=== PATIENT | female | born 1995 | race Caucasian/White ===

== ENCOUNTER 2017-03-18 12:58 | Inpatient (IN) | payer OTHER ==
[2017-03-18 18:54] VITALS: BMI 32.1
--- NOTE | 2017-03-18 21:05 | HP ---
CIWA Score - CIWA Score Nausea/Vomitin-Mild Nausea/No Vomiting Muscle Tremors: 4-Moderate,w/Arms Extend Anxiety: 4-Mod. Anxious/Guarded Agitation: 4-Moderately Restless Paroxysmal Sweats: 1-Minimal Palms Moist Orientation: 0-Oriented Tacttile Disturbances: 0-None Auditory Disturbances: 0-None Visual Disturbances: 0-None Headache: 0-None Present CIWA-Ar Total Score: 14 Admission ROS S - HPI Chief Complaint: withdrawal sx Allergies/Adverse Reactions: Allergies Allergy/AdvReac Type Severity Reaction Status Date / Time No Known Drug Allergies Allergy Unknown Verified 01/31/15 13:44 almonds, cashew, pistachio Allergy Difficulty Uncoded 01/31/15 13:44 Breathing History of Present Illness: 21 years old female with long history of xanax nicotine dependence has asthma and depression is admitted to detox on methadone 160 mg Exam Limitations: No Limitations - Ebola screening Have you traveled outside of the country in the last 21 days: No Have you had contact with anyone from an Ebola affected area: No Have you been sick,other than usual withdrawal symptoms: No Do you have a fever: No - Review of Systems Constitutional: Chills, Changes in sleep, Weight Stable EENT: reports: No Symptoms Reported Respiratory: reports: No Symptoms reported Cardiac: reports: No Symptoms Reported GI: reports: Nausea, Poor Fluid Intake, Abdominal cramping : reports: No Symptoms Reported Musculoskeletal: reports: No Symptoms Reported Integumentary: reports: No Symptoms Reported Neuro: reports: Seizure (last episode age 15), Tremors Endocrine: reports: No Symptoms Reported Hematology: reports: No Symptoms Reported Psychiatric: reports: Judgement Intact, Orientated x3, Depressed Other Systems: Reviewed and Negative Patient History - Patient Medical History Hx Anemia: No Hx Asthma: Yes (Pt is on MDI) Hx Chronic Obstructive Pulmonary Disease (COPD): No Hx Cancer: No Hx Cardiac Disorders: No Hx Congestive Heart Failure: No Hx Hypertension: No Hx Hypercholesterolemia: No Hx Pacemaker: No HX Cerebrovascular Accident: No Hx Seizures: Yes (first episode age 15 last episode "I have see my notebood") Hx Dementia: No Hx Diabetes: No Hx Gastrointestinal Disorders: No Hx Liver Disease: No Hx Genitourinary Disorders: No Hx Sexually Transmitted Disorders: No Hx Renal Disease (ESRD): No Hx Thyroid Disease: No Hx Human Immunodeficiency Virus (HIV): No (NEGATIVE HX ) Hx Hepatitis C: No Hx Depression: Yes Hx Suicide Attempt: No Hx Bipolar Disorder: No Hx Schizophrenia: No - Patient Surgical History Past Surgical History: Yes Hx Neurologic Surgery: No Hx Cataract Extraction: No Hx Cardiac Surgery: No Hx Lung Surgery: No Hx Breast Surgery: No Hx Breast Biopsy: No Hx Abdominal Surgery: No Hx Appendectomy: No Hx Cholecystectomy: No Hx Genitourinary Surgery: No Hx Section: No Hx Orthopedic Surgery: No Hx Hysterectomy: No Other Surgical History: s/p tonsillectomy at age of 6 years Anesthesia Reaction: No - PPD History Previous Implant?: Yes Documented Results: Negative w/o proof Implanted On Prior R Admission?: Yes Date: 08/03/14 Results: 0 MM PPD to be Administered?: Yes - Reproductive History Patient is a Female of Child Bearing Age (11 -55 yrs old): Yes Last Menstrual Period: 02/23/17 Patient : No - Smoking Cessation Smoking history: Current every day smoker Have you smoked in the past 12 months: Yes Aproximately how many cigarettes per day: 10 Cigars Per Day: 0 Hx Chewing Tobacco Use: No Initiated information on smoking cessation: Yes 'Breaking Loose' booklet given: 03/18/17 - Substance & Tx. History Hx Alcohol Use: No Hx Substance Use: Yes Substance Use Type: Cocaine, Marijuana, Tranquilizers Hx Substance Use Treatment: Yes - Substances Abused Alprazolam (Xanax) Route: Oral Frequency: Daily Amount used: 6mg Age of first use: 17 Date of Last Use: 03/18/17 Crack Route: Smoking Frequency: Daily Amount used: $20 Age of first use: 12 Date of Last Use: 03/15/17 Marijuana/Hashish Route: Smoking Frequency: Daily Amount used: $10 Age of first use: 12 Date of Last Use: 03/16/17 Family Disease History - Family Disease History Family Disease History: Heart Disease: Mother, Other: Father (alcohol and xanax no contact) Admission Physical Exam BHS - Vital Signs Vital Signs: Vital Signs - 24 hr 03/18/17 18:52 Temperature 98.7 F Pulse Rate 60 Respiratory 18 Rate Blood Pressure 131/72 - Physical General Appearance: Yes: Appropriately Dressed, Mild Distress, Tremorous, Irritable, Sweating, Anxious HEENTM: Yes: Hearing grossly Normal, Normal ENT Inspection, Normocephalic, Normal Voice Respiratory: Yes: Chest Non-Tender, Lungs Clear, Normal Breath Sounds, No Respiratory Distress, No Accessory Muscle Use Neck: Yes: Supple, Trachea in good position Breast: Yes: Breasts Symetrical Cardiology: Yes: Regular Rhythm, Regular Rate, S1, S2 Abdominal: Yes: Non Tender, Soft Genitourinary: Yes: Within Normal Limits Back: Yes: Normal Inspection Musculoskeletal: Yes: full range of Motion, Gait Steady Extremities: Yes: Normal Range of Motion, Non-Tender, Tremors Neurological: Yes: Alert, Motor Strength 5/5, Normal Response, Depressed Affect Integumentary: Yes: Warm, Track [place] (old - year) Lymphatic: Yes: Within Normal Limits - Diagnostic (1) Asthma Current Visit: Yes Status: Chronic (2) Nicotine dependence Current Visit: Yes Status: Acute Qualifiers: Nicotine product type: cigarettes Substance use status: in withdrawal Qualified Code(s): F17.213 - Nicotine dependence, cigarettes, with withdrawal (3) Sedative, hypnotic or anxiolytic dependence, uncomplicated Current Visit: Yes Status: Acute (4) Depression (emotion) Current Visit: Yes Status: Suspected Qualifiers: Depression Type: dysthymia Qualified Code(s): F34.1 - Dysthymic disorder (5) Methadone maintenance therapy patient Current Visit: Yes Status: Chronic Comment: 160 mg verificaiton pending Cleared for Admission [facility] - Detox or Rehab [facility] Level of Care: Medically Managed Detox Regimen/Protocol: Valium [facility] Breath Alcohol Content Breath Alcohol Content: 0 Urine Pregancy Test - Result Urine Test Results: Negative- NO Line Present Urine Drug Screen - Results Urine Drug Screen Results: THC-Marijuana, PHILIP-Cocaine, BZO-Benzodiazepines, MTD- Methadone, TCA-Tricyclic Antidepress
[2017-03-18] MEDS ORDERED: MAGNESIUM HYDROX 2400MG/30ML ORAL SUSPENSION 30 ML CUP PO PRN (21:11)
[2017-03-18] MEDS ORDERED: P-EPHED 60MG/TRIPROLIDI 2.5MG TABLET PO PRN (21:11)
[2017-03-18] MEDS ORDERED: MAGNESIUM CITRATE 300 ML BOTTLE PO PRN (21:11)
[2017-03-18] MEDS ORDERED: MENTHOL/PHENOL 1 EACH UD MM PRN (21:11)
[2017-03-18] MEDS ORDERED: MAG HYDROX/AL HYDROX/SIMETH 30 ML UNIT-DOSE CUP PO PRN (21:11)
[2017-03-18] MEDS ORDERED: NICOTINE POLACRILEX 2 MG GUM BC PRN (21:11)
[2017-03-18] MEDS ORDERED: diazePAM 5 MG TABLET PO ONE (21:11)
[2017-03-18] MEDS ORDERED: LOPERAMIDE HCL 2 MG CAPSULE PO PRN (21:11)
[2017-03-18] MEDS ORDERED: IBUPROFEN 400 MG TABLET (FP) PO PRN (21:11)
[2017-03-18] MEDS ORDERED: guaiFENesin/D-METHORPHAN HB 10 ML UNIT-DOSE CUPS PO PRN (21:11)
[2017-03-18] MEDS ORDERED: ALBUTEROL SO4 2.5/IPRATROPIUM 0.5 INH SOL 3 ML VIAL.NEB. NEB PRN (21:13)
[2017-03-18] MEDS: THIAMINE HCL 100 MG TABLET (FP) PO SCH (21:44)
[2017-03-18] MEDS: diazePAM 5 MG TABLET PO SCH (21:46)
[2017-03-18] MEDS: diphenhydrAMINE HCL 50 MG CAPSULE PO PRN (22:24)
[2017-03-19] MEDS: diazePAM 5 MG TABLET PO SCH ×3 (05:45→22:45)
[2017-03-19] MEDS: diazePAM 5 MG TABLET PO PRN ×3 (07:51→17:30)
--- NOTE | 2017-03-19 08:34 | CONSULT ---
[facility] Psychiatric Consult - Data Date of interview: 03/19/17 Admission source: [facility] Identifying data: This is 21 years old female obese with no psychiatric hospitalization history intoxicated with: Cocaine, Xanax and Opioids dependence history, Nicotine , Cannabis Substance Abuse History: - Smoking Cessation. Smoking history: Current every day smoker. Have you smoked in the past 12 months: Yes. Aproximately how many cigarettes per day: 10. Cigars Per Day: 0. Hx Chewing Tobacco Use: No. Initiated information on smoking cessation: Yes. 'Breaking Loose' booklet given : 03/18/17. - Substance & Tx. History. Hx Alcohol Use: No. Hx Substance Use: Yes. Substance Use Type: Cocaine, Marijuana, Tranquilizers. Hx Substance Use Treatment: Yes. - Substances Abused. Alprazolam (Xanax). Route: Oral. Frequency: Daily. Amount used: 6mg. Age of first use: 17. Date of Last Use: 03/18/17. Crack. Route: Smoking. Frequency: Daily. Amount used: $20. Age of first use: 12. Date of Last Use: 03/15/17. Marijuana/Hashish. Route : Smoking. Frequency: Daily. Amount used: $10. Age of first use: 12. Date of Last Use: 03/16/17 Medical History: Asthma, Seizure history, MMTP history Psychiatric History: Patient reports history of depression and insomnia, reprots takig prior to admission: Gabapentin 100mg po tid Physical/Sexual Abuse/Trauma History: Denies Additional Comment: Gbapentin 100mg po tid Mental Status Exam - Mental Status Exam Alert and Oriented to: Person Cognitive Function: Fair Patient Appearance: Unkempt Mood: Sad Affect: Mood Congruent Patient Behavior: Cooperative Speech Pattern: Appropriate Voice Loudness: Mildly Soft/Quiet Thought Process: Goal Oriented Thought Disorder: Being Controlled Hallucinations: Denies Suicidal Ideation: Denies Homicidal Ideation: Denies Insight/Judgement: Fair Sleep: Difficulty falling asleep Appetite: Weight loss Muscle strength/Tone: Mild Hypotonicity Gait/Station: Shuffling Additional Comments: Gbapentin 100mg po tid Psychiatric Findings - Problem List ([place] 1, 2,3) (1) Nicotine dependence Current Visit: Yes Status: Acute Qualifiers: Nicotine product type: cigarettes Substance use status: in withdrawal Qualified Code(s): F17.213 - Nicotine dependence, cigarettes, with withdrawal (2) Sedative, hypnotic or anxiolytic dependence, uncomplicated Current Visit: Yes Status: Acute (3) Methadone maintenance therapy patient Current Visit: Yes Status: Chronic Comment: 160 mg verificaiton pending (4) Drug induced sleep disorder Current Visit: No Status: Acute (5) Drug-induced mood disorder Current Visit: No Status: Acute (6) Anxiety disorder Current Visit: No Status: Chronic (7) Cannabis dependence Current Visit: No Status: Chronic (8) Cocaine dependence Current Visit: No Status: Chronic (9) Opioid dependence Current Visit: No Status: Chronic (10) Sedative dependence Current Visit: No Status: Chronic - Initial Treatment Plan Initial Treatment Plan: Gbapentin 100mg po tid
[2017-03-19] MEDS ORDERED: METHADONE HCL 40 MG DISPERSABLE TABLET PO ONE (08:56)
[2017-03-19 09:51] LABS: MCH 29.7 pg (25.7-33.7); MCHC 34.5 g/dl (32.0-36.0); MEAN CELL VOLUME 86.1 fl (80-96); MEAN PLT VOLUME 7.6 fl (7.5-11.1); PLATELET COUNT 186 K/MM3 (134-434); RDW 13.3 % (11.6-15.6); WHITE BLOOD COUNT 6.8 K/mm3 (4.0-10.0)
[2017-03-19 10:42] LABS: ALBUMIN 3.9 g/dl (3.4-5.0); ALK PHOS 59 U/L (45-117); ANION GAP 11 (8-16); BILIRUBIN,TOTAL 0.5 mg/dL (0.2-1.0); CALCIUM 8.9 mg/dL (8.5-10.1); CO2 24 mmol/L (21-32); CREATININE 0.8 mg/dL (0.55-1.02); GLUCOSE,RANDOM 82 mg/dL (74-106); SGOT/AST 15 U/L (15-37); SGPT/ALT 22 U/L (12-78); TOT PROT 6.5 g/dl (6.4-8.2)
[2017-03-19] MEDS: NICOTINE 14 MG/24 HOURS TOPICAL PATCH TD SCH (10:42)
[2017-03-19] MEDS: PRENATAL VITAMINS W/ FOLIC ACID TABLET (FP) PO SCH (10:42)
--- NOTE | 2017-03-19 11:36 | PN ---
S CIWA - CIWA Score Nausea/Vomitin Muscle Tremors: 2 Anxiety: 3 Agitation: 2 Paroxysmal Sweats: 3 Orientation: 0-Oriented Tacttile Disturbances: 1-Very Mild Itch/Numbness Auditory Disturbances: 1-Very Mild Visual Disturbances: 0-None Headache: 0-None Present CIWA-Ar Total Score: 14 BHS Progress Note (SOAP) Subjective: interrupted sleep, sweats, decreased appetite Objective: 03/19/17 11:34 Vital Signs Temperature 98.4 F 03/19/17 09:54 Pulse Rate 63 03/19/17 09:54 Respiratory Rate 18 03/19/17 09:54 Blood Pressure 108/67 03/19/17 09:54 O2 Sat by Pulse Oximetry (%) Laboratory Tests 03/19/17 03/19/17 07:00 07:00 WBC 6.8 RBC 4.55 Hgb 13.5 D Hct 39.2 MCV 86.1 MCHC 34.5 RDW 13.3 Plt Count 186 MPV 7.6 Sodium 142 Potassium 3.6 Chloride 107 Carbon Dioxide 24 Anion Gap 11 BUN 16 Creatinine 0.8 Creat Clearance w eGFR > 60 Random Glucose 82 Calcium 8.9 Total Bilirubin 0.5 D AST 15 D ALT 22 D Alkaline Phosphatase 59 Total Protein 6.5 Albumin 3.9 D pt aox3 in nad ambulating Assessment: 03/19/17 11:35 withdrawal sx;s Plan: cont. detox increase fluids ensure bid
[2017-03-19] MEDS ORDERED: PNEUMOCOCCAL 23 VACCINE 0.5 ML VIAL IM ONE (12:00)
[2017-03-19] MEDS ORDERED: PNEUMOC 13-VAL CONJ-DIP CRM/PF 0.5 ML DISP.SYRIN IM ONE (12:00)
--- NOTE | 2017-03-19 13:12 | EKG ---
Test Reason : Blood Pressure : / mmHG Vent. Rate : 048 BPM Atrial Rate : 048 BPM P-R Int : 130 ms QRS Dur : 078 ms QT Int : 452 ms P-R-T Axes : 052 033 049 degrees QTc Int : 403 ms SINUS BRADYCARDIA OTHERWISE NORMAL ECG NO PREVIOUS ECGS AVAILABLE Confirmed by ULI JEROME MD ([id number]) on 03/19/2017 1:12:34 PM Referred By: Confirmed By:ULI JEROME MD
[2017-03-19 14:06] LABS: HIV 1 & 2 AB NEGATIVE; HIV 1 AGp24 NEGATIVE
[2017-03-19] MEDS: GABAPENTIN 100 MG CAPSULE (FP) PO SCH ×2 (14:17→22:45)
[2017-03-19] MEDS: ALBUTEROL SO4 6.7 GM HFA INHALER IH PRN ×2 (15:40→22:46)
[2017-03-19] MEDS: diphenhydrAMINE HCL 50 MG CAPSULE PO PRN (22:45)
[2017-03-19] MEDS: THIAMINE HCL 100 MG TABLET (FP) PO SCH (22:46)
[2017-03-20] MEDS: GABAPENTIN 100 MG CAPSULE (FP) PO SCH ×3 (05:54→22:45)
[2017-03-20] MEDS ORDERED: METHADONE HCL 40 MG DISPERSABLE TABLET PO SCH (06:00)
[2017-03-20] MEDS: PRENATAL VITAMINS W/ FOLIC ACID TABLET (FP) PO SCH (10:50)
[2017-03-20] MEDS: NICOTINE 14 MG/24 HOURS TOPICAL PATCH TD SCH (10:50)
[2017-03-20] MEDS: diazePAM 5 MG TABLET PO SCH ×2 (10:50→22:44)
[2017-03-20] MEDS: CYCLOBENZAPRINE HCL 10 MG TABLET (FP) PO PRN ×2 (10:52→22:45)
--- NOTE | 2017-03-20 11:47 | PN ---
S CIWA - CIWA Score Nausea/Vomitin-No Nausea/No Vomiting Muscle Tremors: 4-Moderate,w/Arms Extend Anxiety: 3 Agitation: 3 Paroxysmal Sweats: 3 Orientation: 0-Oriented Tacttile Disturbances: 0-None Auditory Disturbances: 0-None Visual Disturbances: 0-None Headache: 0-None Present CIWA-Ar Total Score: 13 BHS Progress Note (SOAP) Subjective: muscle aches sweats interrupted sleep agitation Objective: 03/20/17 11:46 Vital Signs Temperature 98.1 F 03/20/17 10:00 Pulse Rate 90 03/20/17 10:00 Respiratory Rate 16 03/20/17 10:00 Blood Pressure 123/73 03/20/17 10:00 O2 Sat by Pulse Oximetry (%) Laboratory Tests 03/19/17 03/19/17 03/19/17 07:00 07:00 07:00 WBC 6.8 RBC 4.55 Hgb 13.5 D Hct 39.2 MCV 86.1 MCHC 34.5 RDW 13.3 Plt Count 186 MPV 7.6 Sodium 142 Potassium 3.6 Chloride 107 Carbon Dioxide 24 Anion Gap 11 BUN 16 Creatinine 0.8 Creat Clearance w eGFR > 60 Random Glucose 82 Calcium 8.9 Total Bilirubin 0.5 D AST 15 D ALT 22 D Alkaline Phosphatase 59 Total Protein 6.5 Albumin 3.9 D RPR Titer HIV 1&2 Antibody Screen Negative HIV P24 Antigen Negative 03/19/17 07:00 WBC RBC Hgb Hct MCV MCHC RDW Plt Count MPV Sodium Potassium Chloride Carbon Dioxide Anion Gap BUN Creatinine Creat Clearance w eGFR Random Glucose Calcium Total Bilirubin AST ALT Alkaline Phosphatase Total Protein Albumin RPR Titer Nonreactive HIV 1&2 Antibody Screen HIV P24 Antigen awake/alert ambulating no acute distress Assessment: 03/20/17 11:48 withdrawal sx Plan: continue detox increase fluids flexiril prn
[2017-03-20] MEDS: diazePAM 5 MG TABLET PO PRN ×2 (12:13→17:05)
[2017-03-20] MEDS: ACETAMINOPHEN 325 MG TABLET (FP) PO PRN (12:14)
[2017-03-20] MEDS: diphenhydrAMINE HCL 50 MG CAPSULE PO PRN (22:44)
[2017-03-20] MEDS: THIAMINE HCL 100 MG TABLET (FP) PO SCH (22:45)
[2017-03-21] MEDS: GABAPENTIN 100 MG CAPSULE (FP) PO SCH ×3 (05:57→22:34)
[2017-03-21] MEDS: CYCLOBENZAPRINE HCL 10 MG TABLET (FP) PO PRN ×2 (10:52→20:04)
[2017-03-21] MEDS: METHADONE HCL 40 MG DISPERSABLE TABLET PO SCH (10:52)
[2017-03-21] MEDS: diazePAM 5 MG TABLET PO SCH ×2 (10:53→22:34)
[2017-03-21] MEDS: NICOTINE 14 MG/24 HOURS TOPICAL PATCH TD SCH (10:53)
[2017-03-21] MEDS: PRENATAL VITAMINS W/ FOLIC ACID TABLET (FP) PO SCH (10:53)
[2017-03-21] MEDS: diazePAM 5 MG TABLET PO PRN ×2 (13:49→18:08)
[2017-03-21] MEDS: ACETAMINOPHEN 325 MG TABLET (FP) PO PRN ×2 (15:17→22:34)
--- NOTE | 2017-03-21 20:15 | PN ---
BHS Progress Note (SOAP) Subjective: Constipation, Tremors, Sweating, Body aches. Objective: PT. A & O X 3, OBSERVED AMBULATING ON UNIT. 03/21/17 20:13 Vital Signs Temperature 97.1 F L 03/21/17 18:36 Pulse Rate 92 H 03/21/17 18:36 Respiratory Rate 20 03/21/17 18:36 Blood Pressure 107/63 03/21/17 18:36 O2 Sat by Pulse Oximetry (%) Laboratory Tests 03/19/17 03/19/17 03/19/17 07:00 07:00 07:00 WBC 6.8 RBC 4.55 Hgb 13.5 D Hct 39.2 MCV 86.1 MCHC 34.5 RDW 13.3 Plt Count 186 MPV 7.6 Sodium 142 Potassium 3.6 Chloride 107 Carbon Dioxide 24 Anion Gap 11 BUN 16 Creatinine 0.8 Creat Clearance w eGFR > 60 Random Glucose 82 Calcium 8.9 Total Bilirubin 0.5 D AST 15 D ALT 22 D Alkaline Phosphatase 59 Total Protein 6.5 Albumin 3.9 D RPR Titer HIV 1&2 Antibody Screen Negative HIV P24 Antigen Negative 03/19/17 07:00 WBC RBC Hgb Hct MCV MCHC RDW Plt Count MPV Sodium Potassium Chloride Carbon Dioxide Anion Gap BUN Creatinine Creat Clearance w eGFR Random Glucose Calcium Total Bilirubin AST ALT Alkaline Phosphatase Total Protein Albumin RPR Titer Nonreactive HIV 1&2 Antibody Screen HIV P24 Antigen LABS NOTED. Assessment: 03/21/17 20:14 WITHDRAWAL SYMPTOMS. Plan: CONTINUE DETOX.
[2017-03-21] MEDS: diphenhydrAMINE HCL 50 MG CAPSULE PO PRN (22:34)
[2017-03-21] MEDS: THIAMINE HCL 100 MG TABLET (FP) PO SCH (22:34)
[2017-03-22] MEDS: GABAPENTIN 100 MG CAPSULE (FP) PO SCH (05:41)
[2017-03-22 08:03] VITALS: BP 110/62; PULSE 67; TEMP 97.7
[2017-03-22] MEDS: NICOTINE 14 MG/24 HOURS TOPICAL PATCH TD SCH (09:12)
[2017-03-22] MEDS: PRENATAL VITAMINS W/ FOLIC ACID TABLET (FP) PO SCH (09:48)
[2017-03-22] MEDS: METHADONE HCL 40 MG DISPERSABLE TABLET PO SCH (09:48)
[2017-03-22] MEDS ORDERED: diazePAM 5 MG TABLET PO SCH (10:00)
--- NOTE | 2017-03-22 11:46 | DS ---
[facility] Detox Discharge Summary Admission Date: 03/18/17 Discharge Date: 03/22/17 - History Present History: Cannabis Dependence, Sedative Dependence, MMTP Pertinent Past History: Asthma - Physical Exam Results Vital Signs: Vital Signs Temperature 97.7 F 03/22/17 08:01 Pulse Rate 67 03/22/17 08:01 Respiratory Rate 20 03/22/17 08:01 Blood Pressure 110/62 03/22/17 08:01 O2 Sat by Pulse Oximetry (%) Pertinent Admission Physical Exam Findings: Withdrawal sx. Laboratory Last Values WBC 6.8 K/mm3 (4.0-10.0) 03/19/17 07:00 RBC 4.55 M/mm3 (3.60-5.2) 03/19/17 07:00 Hgb 13.5 GM/dL (10.7-15.3) D 03/19/17 07:00 Hct 39.2 % (32.4-45.2) 03/19/17 07:00 MCV 86.1 fl (80-96) 03/19/17 07:00 MCHC 34.5 g/dl (32.0-36.0) 03/19/17 07:00 RDW 13.3 % (11.6-15.6) 03/19/17 07:00 Plt Count 186 K/MM3 (134-434) 03/19/17 07:00 MPV 7.6 fl (7.5-11.1) 03/19/17 07:00 Sodium 142 mmol/L (136-145) 03/19/17 07:00 Potassium 3.6 mmol/L (3.5-5.1) 03/19/17 07:00 Chloride 107 mmol/L (98-107) 03/19/17 07:00 Carbon Dioxide 24 mmol/L (21-32) 03/19/17 07:00 Anion Gap 11 (8-16) 03/19/17 07:00 BUN 16 mg/dL (7-18) 03/19/17 07:00 Creatinine 0.8 mg/dL (0.55-1.02) 03/19/17 07:00 Creat Clearance w eGFR > 60 (>60) 03/19/17 07:00 Random Glucose 82 mg/dL (74-106) 03/19/17 07:00 Calcium 8.9 mg/dL (8.5-10.1) 03/19/17 07:00 Total Bilirubin 0.5 mg/dL (0.2-1.0) D 03/19/17 07:00 AST 15 U/L (15-37) D 03/19/17 07:00 ALT 22 U/L (12-78) D 03/19/17 07:00 Alkaline Phosphatase 59 U/L (45-117) 03/19/17 07:00 Total Protein 6.5 g/dl (6.4-8.2) 03/19/17 07:00 Albumin 3.9 g/dl (3.4-5.0) D 03/19/17 07:00 RPR Titer Nonreactive (NONREACTIVE) 03/19/17 07:00 HIV 1&2 Antibody Screen Negative 03/19/17 07:00 HIV P24 Antigen Negative 03/19/17 07:00 labs noted - Treatment Hospital Course: Detox Protocol Followed, Detoxed Safely, Responded well, Discharged Condition Good, Rehab Referral Accepted Patient has Accepted a Rehab Referral to: [facility] - Medication Discharge Medications: Ambulatory Orders Tramadol HCl [Ultram] 50 mg PO Q6H PRN 01/31/15 Gabapentin [Neurontin -] 300 mg PO TID #90 capsule 02/01/15 Albuterol Sulfate Inhaler - [Ventolin HFA Inhaler -] 2 inh PO Q4H PRN #1 cartridge 02/05/15 Budesonide/Formeterol Fumarate [SYMBICORT 160/4.5mcg -] 0 inh IH BID #1 inhaler 02/05/15 Gabapentin [Neurontin -] 100 mg PO TID #90 cap 03/19/17 - Diagnosis (1) Nicotine dependence Status: Acute Qualifiers: Nicotine product type: cigarettes Substance use status: in withdrawal Qualified Code(s): F17.213 - Nicotine dependence, cigarettes, with withdrawal (2) Sedative, hypnotic or anxiolytic dependence, uncomplicated Status: Acute (3) Asthma Status: Chronic (4) Cannabis dependence Status: Chronic (5) Cocaine dependence Status: Chronic Qualifiers: Substance use status: uncomplicated Qualified Code(s): F14.20 - Cocaine dependence, uncomplicated (6) Methadone maintenance therapy patient Status: Chronic (7) Drug induced sleep disorder Status: Acute (8) Drug-induced mood disorder Status: Acute - AMA Did Patient Leave Against Medical Advice: No
== END 2017-03-22 10:16 | disposition home or self-care (01) | DRG 773 ==
LOC: YASAS 12:58 → Y6N 19:51
PROVIDERS: ADMIT Internal Medicine Addiction Medicine; ATTEND Internal Medicine Addiction Medicine
PROC: HZ2ZZZZ Detoxification Services for Substance Abuse Treatment (ICD-10-PCS; principal; 2017-03-18)
DX: F13.230 Sedative, hypnotic or anxiolytic dependence with withdrawal, uncomplicated (principal); F11.20 Opioid dependence, uncomplicated; F14.20 Cocaine dependence, uncomplicated; F12.20 Cannabis dependence, uncomplicated; F17.213 Nicotine dependence, cigarettes, with withdrawal; F19.24 Other psychoactive substance dependence with psychoactive substance-induced mood disorder; F19.282 Other psychoactive substance dependence with psychoactive substance-induced sleep disorder; F34.1 Dysthymic disorder; F41.9 Anxiety disorder, unspecified; J45.909 Unspecified asthma, uncomplicated; Z86.69 Personal history of other diseases of the nervous system and sense organs; Z59.0 Homelessness
CPT/HCPCS: 36415; 80053; 85027; 86593; 87389; 93005; 93010